=== PATIENT | male | born 1945 | race African-American/Black ===

== ENCOUNTER 2017-02-12 20:50 | Emergency (ER) | payer MEDICARE ==
[~2017-02-12] VITALS: Ht 182.9 cm; Wt 106.1 kg
--- NOTE | 2017-02-12 20:54 | Emergency Room Report ---
History of Present Illness General Source: Patient, EMS Present Illness HPI Patient is a 71-year-old male presented after increased chest pain. Patient reported having intermittent pain. He had prior history of congestive heart failure. He reports taking multiple medications including sotalol. He was given aspirin nitroglycerin with improvement in pain. The patient denies any pain at this time. He was noted to have a run of V. 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 This resolve spontaneously without AICD firing. He denies shortness of breath. Patient reports having normal urination. The pain was intermittent in nature. Patient reports normally been followed at [facility] Allergies: Coded Allergies: LISINOPRIL (Unverified Allergy, Unknown, 02/12/17) PENICILLINS (Unverified Allergy, Unknown, 02/12/17) Patient History Reviewed Nursing Documentation: PMH: Agreed, PSxH: Agreed Review of Systems All Other Systems: negative except mentioned in HPI Physical Exam Sp02 EP Interpretation: reviewed, normal General Appearance: normal inspection, well appearing, no apparent distress, alert, GCS 15, obese, Chronically Ill Head: atraumatic ENT: normal ENT inspection, hearing grossly normal, normal voice Neck: normal inspection, full range of motion, supple, no bony tend Respiratory: normal inspection, lungs clear, normal breath sounds, no respiratory distress, no retraction, no wheezing Cardiovascular #1: regular rate, rhythm, edema Gastrointestinal: normal inspection, normal bowel sounds, non tender, soft, no guarding, no hernia Genitourinary: no CVA tenderness Musculoskeletal: normal inspection, back normal, normal range of motion Neurologic: normal inspection, alert, oriented x3, responsive, 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 Differential diagnosis included but was not limited to acute coronary syndrome, pulmonary embolism, pneumonia, aortic dissection, shingles, pneumothorax, aortic dissection, esophageal rupture, pericarditis. Because of complexity of patient's case laboratory testing and imaging studies were ordered.The patient was given IV Lasix. A chest x-ray one view interpreted cardio megaly with trace pleural effusions. The patient remained pain-free. The patient was discussed with Dr. griffin at [facility] [id number]. The patient was transferred to [facility] for further monitoring and treatment. Labs Test 02/12/17 21:10 White Blood Count 5.1 K/UL (4.8-10.8) Red Blood Count 4.57 M/UL (4.70-6.10) Hemoglobin 13.3 G/DL (14.2-18.0) Hematocrit 43.9 % (42.0-52.0) Mean Corpuscular Volume 96 FL (80-99) Mean Corpuscular Hemoglobin 29.0 PG (27.0-31.0) Mean Corpuscular Hemoglobin Concent 30.2 G/DL (32.0-36.0) Red Cell Distribution Width 12.8 % (11.6-14.8) Platelet Count 99 K/UL (150-450) Mean Platelet Volume 7.2 FL (6.5-10.1) Neutrophils (%) (Auto) 55.7 % (45.0-75.0) Lymphocytes (%) (Auto) 26.0 % (20.0-45.0) Monocytes (%) (Auto) 11.0 % (1.0-10.0) Eosinophils (%) (Auto) 6.0 % (0.0-3.0) Basophils (%) (Auto) 1.3 % (0.0-2.0) Prothrombin Time 11.3 SEC (9.30-11.50) Prothromb Time International Ratio 1.1 (0.9-1.1) Activated Partial Thromboplast Time 27 SEC (23-33) Sodium Level 145 MMOL/L (136-145) Potassium Level 3.6 MMOL/L (3.5-5.1) Chloride Level 105 MMOL/L (98-107) Carbon Dioxide Level 36 MMOL/L (21-32) Anion Gap 4 mmol/L (5-15) Blood Urea Nitrogen 11 mg/dL (7-18) Creatinine 1.4 MG/DL (0.55-1.30) Estimat Glomerular Filtration Rate mL/min (>60) Glucose Level 99 MG/DL (74-106) Calcium Level 7.8 MG/DL (8.5-10.1) Total Bilirubin 0.5 MG/DL (0.2-1.0) Aspartate Amino Transf (AST/SGOT) 23 U/L (15-37) Alanine Aminotransferase (ALT/SGPT) 18 U/L (12-78) Alkaline Phosphatase 89 U/L (46-116) Total Creatine Kinase 259 U/L (26-308) Creatine Kinase MB 1.9 NG/ML (0.0-3.6) Creatine Kinase MB Relative Index 0.7 Troponin I 0.027 ng/mL (0.000-0.056) Pro-B-Type Natriuretic Peptide 359 pg/mL (0-125) Total Protein 7.5 G/DL (6.4-8.2) Albumin 3.1 G/DL (3.4-5.0) Globulin 4.4 g/dL Albumin/Globulin Ratio 0.7 (1.0-2.7) Lipase 149 U/L (73-393) Status: improved Disposition: XFER SHT-TRM HOSP Condition: Stable Silvano Archer Feb 12, 2017 20:54
[2017-02-12 21:34] LABS: HEMATOCRIT 43.9 % (42.0-52.0); HEMOGLOBIN 13.3 G/DL (14.2-18.0); MEAN CORPUSCULAR VOLUME 96 FL (80-99); PLATELET COUNT 99 K/UL (150-450); RED BLOOD COUNT 4.57 M/UL (4.70-6.10); RED CELL DISTRIBUTION WIDTH 12.8 % (11.6-14.8); WHITE BLOOD COUNT 5.1 K/UL (4.8-10.8)
[2017-02-12 21:35] LABS: BASOPHILS % (AUTO) 1.3 % (0.0-2.0); NEUTROPHILS % (AUTO) 55.7 % (45.0-75.0)
[2017-02-12 21:48] LABS: ANION GAP 4 mmol/L (5-15); BLOOD UREA NITROGEN 11 mg/dL (7-18); CALCIUM 7.8 MG/DL (8.5-10.1); CARBON DIOXIDE 36 MMOL/L (21-32); CHLORIDE 105 MMOL/L (98-107); CREATININE 1.4 MG/DL (0.55-1.30); POTASSIUM 3.6 MMOL/L (3.5-5.1); SODIUM 145 MMOL/L (136-145)
[2017-02-12 21:51] LABS: INR 1.1 (0.9-1.1)
[2017-02-12 22:00] LABS: ALANINE AMINOTRANSFERASE 18 U/L (12-78); ALBUMIN 3.1 G/DL (3.4-5.0); ALBUMIN/GLOBULIN RATIO 0.7 (1.0-2.7); ALKALINE PHOSPHATASE 89 U/L (46-116); ASPARTATE AMINO TRANSFERASE 23 U/L (15-37); BILIRUBIN,TOTAL 0.5 MG/DL (0.2-1.0); CKMB 1.9 NG/ML (0.0-3.6); CREATINE KINASE 259 U/L (26-308)
[2017-02-12] MEDS ORDERED: HYDRALAZINE HCL25 M1 ORAL (22:25)
[2017-02-12] MEDS ORDERED: POTASSIUM600 MG PO (22:26)
[2017-02-12] MEDS ORDERED: FUROSEMIDE40 MG ORAL (22:26)
[2017-02-12] MEDS ORDERED: COREG6.25 MG ORAL (22:26)
[2017-02-12] MEDS ORDERED: CARVEDILOL12.5 MG ORAL (22:26)
[2017-02-12 22:46] VITALS: BP 141/96
[2017-02-13 00:40] VITALS: BP 127/79
[2017-02-13 00:59] VITALS: BP 127/79
--- NOTE | 2017-02-13 09:41 | Diagnostic Imaging Report ---
Indication: Shortness of breath Technique: One view of the chest Comparison: None Findings: Body habitus limits evaluation. The heart is enlarged. There is some atelectasis at the left lung base. No definite infiltrates, effusions, or congestion. There is a left chest AICD Impression: Left basilar atelectasis No definite acute process otherwise Cardiomegaly
--- NOTE | 2017-02-21 16:04 | Cardiology Report ---
APPROVED REPORT EKG Measurement Heart [id number] LA 272P [id number] Atrial pacing Inc RBBB leftward axis Abnormal ECG
== END 2017-02-13 01:04 | disposition short-term general hospital (02) ==
LOC: EDBD 20:50 → EMR 21:00 → EDBEDREQ 22:05 → ENRESERV 02-13 00:31 → EMR 02-13 01:04
DX: I24.9 Acute ischemic heart disease, unspecified (principal); I49.9 Cardiac arrhythmia, unspecified; I50.9 Heart failure, unspecified; Z88.8 Allergy status to other drugs, medicaments and biological substances; Z88.0 Allergy status to penicillin; Z95.810 Presence of automatic (implantable) cardiac defibrillator
CPT/HCPCS: 36415; 71045; 80053; 82550; 82553; 83690; 83880; 84484; 85025; 85610; 85730; 93005; 96374; 99285; J1940